=== PATIENT | male | born 1980 | race Hispanic/Latino ===

== ENCOUNTER 2018-05-01 03:23 | Emergency (ER) | payer SELFPAY ==
[2018-05-01] MEDS ORDERED: ONDANSETRON 4 MG/2 ML VIAL ONE (03:50)
[2018-05-01] MEDS ORDERED: MORPHINE 4 MG/ML SYR ONE (03:50)
[2018-05-01] MEDS ORDERED: KETOROLAC 30 MG/ML INJ ONE (03:50)
[2018-05-01] MEDS ORDERED: NA CHLORIDE 0.9% 2,000 ML ONE (03:53)
[2018-05-01 04:04] LABS: Urine Blood 3+ (NEG); Urine Glucose NEGATIVE (NEG); Urine Protein TRACE (NEG); Urine Specific Gravity >1.030 (1.005-1.030); Urine pH 5.5 (5.0-7.0)
[2018-05-01] MEDS ORDERED: CEFTRIAXONE/SWI 1gm 1 GM/10 ML SYR ONE (04:05)
[2018-05-01 04:08] LABS: Absolute Lymphocytes (CBC) 2.8 K/uL (0.7-4.9); Absolute Monocytes 0.4 K/uL (0.1-1.3); Absolute Neutrophil 3.1 K/uL (1.8-8.0); Basophils % 1.2 % (0-1.3); Eosinophils % 1.1 % (0-4.4); Lymphocytes % 43.1 % (15.3-44.8); MCH 28.9 pg (27.0-35.0); MCV 82.4 fL (80-100); MPV 8.7 fL (7.6-11.3); Monocytes % 6.1 % (3.3-12.3); RBC Red Blood Cell Count 5.46 M/uL (4.33-5.43)
[2018-05-01 04:43] LABS: ALT/SGPT 28 U/L (12-78); AST/SGOT 23 U/L (15-37); Albumin 3.9 g/dL (3.4-5.0); Alkaline Phosphatase 155 U/L (45-117); Amylase Level 79 U/L (25-115); BUN Blood Urea Nitrogen 15 mg/dL (7-18); Bicarbonate 28 mmol/L (21-32); Bilirubin Direct 0.1 mg/dL (0-0.2); Bilirubin Total 0.3 mg/dL (0.2-1.0); Glucose Level 102 mg/dL (74-106); Lipase 116 U/L (73-393); Potassium 3.7 mmol/L (3.5-5.1); Sodium Level 142 mmol/L (136-145)
[2018-05-01 04:57] LABS: Urine Bacteria <20 /HPF (NONE SEEN); Urine Culture Reflex Order NOT NEEDED; Urine Mucus 1+ /HPF (NONE SEEN); Urine RBC 20-50 /HPF (NONE SEEN)
--- NOTE | 2018-05-01 05:55 | ER ---
Nurse's Notes [facility] Name: Ash Bell Jr Age: 38 yrs Sex: Male : 1980 Arrival Date: 05/01/2018 Time: 03:24 Bed 16 Private MD: Diagnosis: Hydronephrosis with renal and ureteral calculous obstruction Presentation: 05/01 03:38 Presenting complaint: Patient states: "I have a kidney stone, I have had surgery to bs1 remove a kidney stone in the past, it started about 2 hours ago, I threw up my lunch.". Transition of care: patient was not received from another setting of care. Onset of symptoms was May 01, 2018. Risk Assessment: Do you want to hurt yourself or someone else? Patient reports no desire to harm self or others. Initial Sepsis Screen: Does the patient meet any 2 criteria? No. Patient's initial sepsis screen is negative. Does the patient have a suspected source of infection? No. Patient's initial sepsis screen is negative. Care prior to arrival: None. 03:38 Method Of Arrival: Wheelchair bs1 03:38 Acuity: RIENA 3 bs1 Historical: - Allergies: 03:40 No Known Allergies; bs1 - Home Meds: 03:40 None [Active]; bs1 - PMHx: 03:40 kidney stones; bs1 - PSHx: 03:40 laser to remove kidney stone; bs1 - Immunization history:: Adult Immunizations up to date. - Social history:: Smoking status: Patient uses tobacco products, denies chronic smoking, but will smoke occasionally. - Ebola Screening: : Patient negative for fever greater than or equal to 101.5 degrees Fahrenheit, and additional compatible Ebola Virus Disease symptoms Patient denies exposure to infectious person. - Family history:: not pertinent. Screenin:41 Abuse screen: Denies threats or abuse. Denies injuries from another. Nutritional bs1 screening: No deficits noted. Tuberculosis screening: No symptoms or risk factors identified. Fall Risk None identified. Assessment: 03:42 General: Appears uncomfortable, Behavior is cooperative, agitated, anxious. Pain: bs1 Complains of pain in left back, left lower abdomen, testicles. Pain: Pain radiates to stomach/testicles Pain currently is 10 out of 10 on a pain scale. Quality of pain is described as sharp, stabbing. Neuro: Level of Consciousness is awake, alert, obeys commands, Oriented to person, place, time, situation, Appropriate for age. Cardiovascular: Denies chest pain, shortness of breath, Heart tones S1 S2 present Capillary refill < 3 seconds Patient's skin is warm and dry. Respiratory: Airway is patent Trachea midline Respiratory effort is even, unlabored, Respiratory pattern is regular, symmetrical, Breath sounds are clear bilaterally. GI: Abdomen is round non-distended, Bowel sounds present X 4 quads. Abdomen is tender to palpation in left lower quadrant Guarding noted in left lower quadrant. : Reports pain in left flank(s), testicle. EENT: No signs and/or symptoms were reported regarding the EENT system. Derm: Skin is intact. Musculoskeletal: Circulation, motion, and sensation intact. Capillary refill < 3 seconds, Range of motion: intact in all extremities. 04:45 Reassessment: No changes from previously documented assessment. Patient and/or family bs1 updated on plan of care and expected duration. Pain level reassessed. Patient is alert, oriented x 3, equal unlabored respirations, skin warm/dry/pink. 05:00 Reassessment: Patient appears in no apparent distress at this time. Patient is alert, bs1 oriented x 3, equal unlabored respirations, skin warm/dry/pink. Patient states that pain medication has eased the pain Patient states feeling better. 06:05 Reassessment: Patient appears in no apparent distress at this time. Patient and/or bs1 family updated on plan of care and expected duration. Pain level reassessed. Patient is alert, oriented x 3, equal unlabored respirations, skin warm/dry/pink. Pending CT scan results. Updated patient on POC. 07:04 Reassessment: Patient appears in no apparent distress at this time. Patient and/or jd3 family updated on plan of care and expected duration. Pain level reassessed. Patient is alert, oriented x 3, equal unlabored respirations, skin warm/dry/pink. pt reported understanding of discharge instructions, even and steady gait upon discharge. Patient states feeling better. Vital Signs: 03:38 BP 120 / 76; Pulse 84; Resp 20; Temp 97.8(O); Pulse Ox 96% on R/A; Weight 82.55 kg; bs1 Height 5 ft. 5 in. (165.10 cm); Pain 10/10; 04:30 BP 126 / 80; Pulse 72; Resp 18 S; Pulse Ox 96% ; bs1 05:30 BP 120 / 67; Pulse 66; Resp 18 S; Pulse Ox 96% on R/A; bs1 06:00 BP 116 / 81; Pulse 77; Resp 17 S; Pulse Ox 94% on R/A; bs1 07:00 BP 120 / 68; Pulse 78; Resp 17; Temp 98(O); Pulse Ox 99% on R/A; Pain 0/10; bs1 03:38 Body Mass Index 30.29 (82.55 kg, 165.10 cm) bs1 ED Course: 03:24 Patient arrived in ED. ds1 03:28 Pat Young, PITA is Primary Nurse. bs1 03:34 Cesar Romero MD is Attending Physician. domenica 03:40 Triage completed. bs1 03:45 Inserted saline lock: 18 gauge in right antecubital area, using aseptic technique. bs1 Blood collected. Inserted by [facility]. 04:[address] via stretcher. eh 04:10 CT completed. Patient tolerated procedure well. Patient moved back from CT. eh 04:19 CT Stone Protocol In Process Unspecified. EDMS 05:00 Patient has correct armband on for positive identification. Placed in gown. Bed in low bs1 position. Call light in reach. Side rails up X 1. Pulse ox on. NIBP on. Warm blanket given. 05:00 Arm band placed on right wrist. bs1 05:54 Courtney Augustin MD is Referral Physician. domenica 07:02 No provider procedures requiring assistance completed. IV discontinued, bleeding bs1 controlled, No redness/swelling at site. Pressure dressing applied. 07:03 No provider procedures requiring assistance completed. IV discontinued, intact, jd3 bleeding controlled, No redness/swelling at site. Pressure dressing applied, dc'd IV placed by BS RN. Administered Medications: 03:58 Drug: NS 0.9% 1000 ml Route: IV; Rate: 1 bolus; Site: right antecubital; bs1 07:05 Follow up: Response: No adverse reaction; IV Status: Completed infusion; IV Intake: jd3 1000ml 03:59 Drug: TORadol 30 mg Route: IVP; Site: right antecubital; bs1 04:49 Follow up: Response: No adverse reaction bs1 03:59 Drug: morphine 4 mg Route: IVP; Site: right antecubital; bs1 04:49 Follow up: Response: No adverse reaction bs1 03:59 Drug: Zofran 4 mg Route: IVP; Site: right antecubital; bs1 04:48 Follow up: Response: No adverse reaction bs1 04:06 Drug: Rocephin - (cefTRIAXone) 1 grams Route: IVPB; Infused Over: 30 mins; Site: right bs1 antecubital; 07:05 Follow up: Response: No adverse reaction; IV Status: Completed infusion jd3 04:48 Drug: NS 0.9% 1000 ml Route: IV; Rate: 1 bolus; Site: right antecubital; bs1 07:05 Follow up: Response: No adverse reaction; IV Status: Completed infusion; IV Intake: jd3 1000ml 06:05 Drug: Flomax 0.4 mg Route: PO; bs1 06:11 Follow up: Response: No adverse reaction bs1 Intake: 07:05 IV: 1000ml; Total: 1000ml. jd3 07:05 IV: 1000ml; Total: 2000ml. jd3 Outcome: 05:54 Discharge ordered by MD. metzger 07:03 Discharged to home ambulatory, with friend. jd3 07:03 Condition: stable 07:03 Discharge instructions given to patient, Instructed on discharge instructions, follow up and referral plans. medication usage, Demonstrated understanding of instructions, follow-up care, medications, Prescriptions given X 4. 07:04 Patient left the ED. jd3 Signatures: Dispatcher [employer] EDMN Cesar Romero MD MD cha Hagler, Ervin eh Sanford, Demi ds1 Mariano Carty RN RN jd3 Pat Young RN RN bs1
--- NOTE | 2018-05-01 05:55 | EDPHYS ---
Physician Documentation [facility] Name: Ash Bell Jr Age: 38 yrs Sex: Male : 1980 Arrival Date: 05/01/2018 Time: 03:24 Bed 16 Private MD: ED Physician Cesar Romero HPI: 05/01 03:48 This 38 yrs old Male presents to ER via Wheelchair with complaints of Possible domenica Kidney Stone. 03:48 The patient presents with abdominal pain in the left upper quadrant, in the left lower domenica quadrant. Onset: The symptoms/episode began/occurred 1 day(s) ago. The patient complains of pain in the left low back and left mid back. The pain radiates to the left low back and left mid back. Onset: The symptoms/episode began/occurred 1 day(s) ago. Modifying factors: The symptoms are alleviated by nothing. the symptoms are aggravated by nothing. The symptoms radiate to the left flank. Associated signs and symptoms: Pertinent positives:. Associated signs and symptoms: none. Historical: - Allergies: 03:40 No Known Allergies; bs1 - Home Meds: 03:40 None [Active]; bs1 - PMHx: 03:40 kidney stones; bs1 - PSHx: 03:40 laser to remove kidney stone; bs1 - Immunization history:: Adult Immunizations up to date. - Social history:: Smoking status: Patient uses tobacco products, denies chronic smoking, but will smoke occasionally. - Ebola Screening: : Patient negative for fever greater than or equal to 101.5 degrees Fahrenheit, and additional compatible Ebola Virus Disease symptoms Patient denies exposure to infectious person. - Family history:: not pertinent. ROS: 03:48 Constitutional: Negative for fever, chills, and weight loss, Eyes: Negative for injury, domenica pain, redness, and discharge, ENT: Negative for injury, pain, and discharge, Neck: Negative for injury, pain, and swelling, Cardiovascular: Negative for chest pain, palpitations, and edema, Respiratory: Negative for shortness of breath, cough, wheezing, and pleuritic chest pain, : Negative for injury, bleeding, discharge, and swelling, MS/Extremity: Negative for injury and deformity, Skin: Negative for injury, rash, and discoloration, Neuro: Negative for headache, weakness, numbness, tingling, and seizure, Psych: Negative for depression, anxiety, suicide ideation, homicidal ideation, and hallucinations, Allergy/Immunology: Negative for hives, rash, and allergies, Endocrine: Negative for neck swelling, polydipsia, polyuria, polyphagia, and marked weight changes, Hematologic/Lymphatic: Negative for swollen nodes, abnormal bleeding, and unusual bruising. 03:48 Abdomen/GI: Positive for abdominal pain, nausea and vomiting. 03:48 Back: Positive for flank pain, on the left. Exam: 03:48 Constitutional: This is a well developed, well nourished patient who is awake, alert, domenica and in no acute distress. Head/Face: Normocephalic, atraumatic. Eyes: Pupils equal round and reactive to light, extra-ocular motions intact. Lids and lashes normal. Conjunctiva and sclera are non-icteric and not injected. Cornea within normal limits. Periorbital areas with no swelling, redness, or edema. ENT: Nares patent. No nasal discharge, no septal abnormalities noted. Tympanic membranes are normal and external auditory canals are clear. Oropharynx with no redness, swelling, or masses, exudates, or evidence of obstruction, uvula midline. Mucous membranes moist. Neck: Trachea midline, no thyromegaly or masses palpated, and no cervical lymphadenopathy. Supple, full range of motion without nuchal rigidity, or vertebral point tenderness. No Meningismus. Chest/axilla: Normal chest wall appearance and motion. Nontender with no deformity. No lesions are appreciated. Cardiovascular: Regular rate and rhythm with a normal S1 and S2. No gallops, murmurs, or rubs. Normal PMI, no JVD. No pulse deficits. Respiratory: Lungs have equal breath sounds bilaterally, clear to auscultation and percussion. No rales, rhonchi or wheezes noted. No increased work of breathing, no retractions or nasal flaring. Male : Normal genitalia with no discharge or lesions. Skin: Warm, dry with normal turgor. Normal color with no rashes, no lesions, and no evidence of cellulitis. MS/ Extremity: Pulses equal, no cyanosis. Neurovascular intact. Full, normal range of motion. Neuro: Awake and alert, GCS 15, oriented to person, place, time, and situation. Cranial nerves II-XII grossly intact. Motor strength 5/5 in all extremities. Sensory grossly intact. Cerebellar exam normal. Normal gait. Psych: Awake, alert, with orientation to person, place and time. Behavior, mood, and affect are within normal limits. 03:48 Abdomen/GI: Inspection: abdomen appears normal, Bowel sounds: normal, Palpation: mild abdominal tenderness, moderate abdominal tenderness, in the anterior aspect of left lateral abdomen, posterior aspect of left lateral abdomen, left upper quadrant and left lower quadrant. 03:48 : CVA tenderness, on the left, Male external genitalia: normal, Bladder: is normal, non-distended. Vital Signs: 03:38 BP 120 / 76; Pulse 84; Resp 20; Temp 97.8(O); Pulse Ox 96% on R/A; Weight 82.55 kg; bs1 Height 5 ft. 5 in. (165.10 cm); Pain 10/10; 04:30 BP 126 / 80; Pulse 72; Resp 18 S; Pulse Ox 96% ; bs1 05:30 BP 120 / 67; Pulse 66; Resp 18 S; Pulse Ox 96% on R/A; bs1 06:00 BP 116 / 81; Pulse 77; Resp 17 S; Pulse Ox 94% on R/A; bs1 07:00 BP 120 / 68; Pulse 78; Resp 17; Temp 98(O); Pulse Ox 99% on R/A; Pain 0/10; bs1 03:38 Body Mass Index 30.29 (82.55 kg, 165.10 cm) 1 MDM: 03:34 Patient medically screened. [facility] 03:51 Data reviewed: vital signs, nurses notes, lab test result(s), EKG, radiologic studies, [facility] CT scan, plain films. 05/01 03:47 Order name: Amylase, Serum; Complete Time: 04:55 [facility] 05/01 03:47 Order name: Basic Metabolic Panel; Complete Time: 04:55 [facility] 05/01 03:47 Order name: CBC with Diff; Complete Time: 04:55 [facility] 05/01 03:47 Order name: Creatinine for Radiology; Complete Time: 04:55 [facility] 05/01 03:47 Order name: Hepatic Function; Complete Time: 04:55 [facility] 05/01 03:47 Order name: Lipase; Complete Time: 04:55 [facility] 05/01 03:47 Order name: Urine Microscopic Only [facility] 05/01 03:47 Order name: Urine Culture [facility] 05/01 03:47 Order name: CT Stone Protocol [facility] 05/01 04:00 Order name: Urine Dipstick--Ancillary (enter results) rg2 05/01 04:00 Order name: Urine Dipstick-Ancillary; Complete Time: 04:55 EDMS 05/01 03:47 Order name: IV Saline Lock; Complete Time: 04:06 [facility] 05/01 03:47 Order name: Labs collected and sent; Complete Time: 04:06 [facility] 05/01 03:47 Order name: Urine Dipstick-Ancillary (obtain specimen); Complete Time: 04:06 [facility] Administered Medications: 03:58 Drug: NS 0.9% 1000 ml Route: IV; Rate: 1 bolus; Site: right antecubital; bs1 07:05 Follow up: Response: No adverse reaction; IV Status: Completed infusion; IV Intake: jd3 1000ml 03:59 Drug: TORadol 30 mg Route: IVP; Site: right antecubital; bs1 04:49 Follow up: Response: No adverse reaction bs1 03:59 Drug: morphine 4 mg Route: IVP; Site: right antecubital; bs1 04:49 Follow up: Response: No adverse reaction bs1 03:59 Drug: Zofran 4 mg Route: IVP; Site: right antecubital; bs1 04:48 Follow up: Response: No adverse reaction bs1 04:06 Drug: Rocephin - (cefTRIAXone) 1 grams Route: IVPB; Infused Over: 30 mins; Site: right bs1 antecubital; 07:05 Follow up: Response: No adverse reaction; IV Status: Completed infusion jd3 04:48 Drug: NS 0.9% 1000 ml Route: IV; Rate: 1 bolus; Site: right antecubital; bs1 07:05 Follow up: Response: No adverse reaction; IV Status: Completed infusion; IV Intake: jd3 1000ml 06:05 Drug: Flomax 0.4 mg Route: PO; bs1 06:11 Follow up: Response: No adverse reaction bs1 Disposition: 05/01/18 05:54 Discharged to Home. Impression: Hydronephrosis with renal and ureteral calculous obstruction. - Condition is Stable. - Discharge Instructions: Kidney Stones, Kidney Stones, [id number], Hydronephrosis, Dietary Guidelines to Help Prevent Kidney Stones. - Prescriptions for Tylenol- Codeine #3 300-30 mg Oral Tablet - take 2 tablets by ORAL route every 6 hours As needed; 26 tablet. Zofran 4 mg Oral Tablet - take 1 tablet by ORAL route every 12 hours As needed; 20 tablet. Flomax 0.4 mg Oral Capsule, Sust. Release 24 hr - take 1 capsule by ORAL route once daily 1/2 hour following the same meal each day; 20 capsule. Cipro 500 mg Oral Tablet - take 1 tablet by ORAL route every 12 hours for 7 days; 14 tablet. - Medication Reconciliation Form, Thank You Letter, Antibiotic Education, Prescription Opioid Use form. - Follow up: Private Physician; When: 2 - 3 days; Reason: Recheck today's complaints, Continuance of care, Re-evaluation by your physician. Follow up: Courtney Augustin; When: 2 - 3 days; Reason: Recheck today's complaints, Re-evaluation by your physician. - Problem is new. - Symptoms have improved. Signatures: Dispatcher [employer] EDCesar Rooney MD MD cha Davies, Jonathon, RN RN jPat Amanda RN RN bs1 Corrections: (The following items were deleted from the chart) 07:04 05:54 05/01/2018 05:54 Discharged to Home. Impression: Hydronephrosis with renal and jd3 ureteral calculous obstruction. Condition is Stable. Discharge Instructions: Kidney Stones, Kidney Stones, [id number], Hydronephrosis, Dietary Guidelines to Help Prevent Kidney Stones. Prescriptions for Tylenol-Codeine #3 300-30 mg Oral Tablet - take 2 tablets by ORAL route every 6 hours As needed; 26 tablet, Zofran 4 mg Oral Tablet - take 1 tablet by ORAL route every 12 hours As needed; 20 tablet, Cipro 500 mg Oral Tablet - take 1 tablet by ORAL route every 12 hours for 7 days; 14 tablet, Flomax 0.4 mg Oral Capsule, Sust. Release 24 hr - take 1 capsule by ORAL route once daily 1/2 hour following the same meal each day; 20 capsule. and Forms are Medication Reconciliation Form, Thank You Letter, Antibiotic Education, Prescription Opioid Use. Follow up: Private Physician; When: 2 - 3 days; Reason: Recheck today's complaints, Continuance of care, Re-evaluation by your physician. Follow up: Courtney Augustin; When: 2 - 3 days; Reason: Recheck today's complaints, Re-evaluation by your physician. Problem is new. Symptoms have improved. domenica
[2018-05-01] MEDS ORDERED: TAMSULOSIN 0.4 MG SR CAP ONE (06:06)
--- NOTE | 2018-05-01 08:24 | RAD REPORT ---
EXAM DESCRIPTION: CT - Stone Protocol - 05/01/2018 7:03 am CLINICAL HISTORY: Flank pain. FLANK PAIN COMPARISON: No comparisons TECHNIQUE: Axial images were obtained without oral or IV contrast. Lack of contrast limits solid org an and vascular assessment. The [id number] spans the entirety of the system partially obscuring uppermost abdomen and lung bases. Coronal reformatted images were obtained and reviewed. All CT scans are performed using dose optimization technique as appropriate and may include automated exposure control or mA/KV adjustment according to patient size. FINDINGS: The lower lung gomez are clear. Imaged portions of the liver and spleen show no suspicious findings on non-contrast imaging. The panc reas and adrenal glands are normal. No pathologic lymphadenopathy in the abdomen or pelvis. 3 mm stone (570 HU) at the left UVJ is noted resulting in mild left hydronephrosis. Additional puncta te calculus upper pole left kidney is seen. No right-sided stone or hydronephrosis. No bowel obstruction, free air, free fluid or abscess. Normal appendix noted. No significant bony abnormality. IMPRESSION: 3 mm stone left UVJ resulting in mild left hydronephrosis.
== END 2018-05-01 07:04 | disposition home or self-care (01) ==
LOC: ER 03:23
DX: N13.2 Hydronephrosis with renal and ureteral calculous obstruction (principal); F17.200 Nicotine dependence, unspecified, uncomplicated
CPT/HCPCS: 36415; 74176; 76377; 80048; 80076; 81003; 81015; 82150; 83690; 85025; 87086; 87088; 96365; 96366; 96375; 99284; J0696; J2405; J7030